=== PATIENT | female | born 1970 | race Caucasian/White ===

== ENCOUNTER 2019-07-27 10:27 | Outpatient (CLI) | payer OTHER, SELFPAY | END 2019-07-27 10:28 | disposition home or self-care (01) | LOC: ANHVADLAB 10:29 | PROVIDERS: PCP Internal Medicine; Visit Provider Nurse Practitioner | DX: E66.9 Obesity, unspecified (principal); Z68.30 Body mass index [BMI] 30.0-30.9, adult | CPT/HCPCS: 36415; 84443 ==

== ENCOUNTER 2019-12-14 08:09 | Outpatient (CLI) | payer OTHER, SELFPAY ==
--- NOTE | ~2019-12-14 | MM_ITS ---
EXAMINATION: MM scrn amberly implant BI w florentino HISTORY: Screening mammogram TECHNIQUE: Craniocaudal and mediolateral oblique 3-D tomosynthesis images with implant displacement a nd synthetic 2-D images were generated. Craniocaudal and mediolateral oblique views of the breasts wi thout implant displacement were obtained using full field digital mammography. CAD analysis was submi tted and interpreted. COMPARISON: 10/07/2017 bilateral implant digital screening mammogram 04/25/2016 right diagnostic digital implant mammogram and complete right breast ultrasound 04/17/2016 bilateral implant digital screening mammogram BREAST PARENCHYMAL COMPOSITION: There are scattered areas of fibroglandular density. FINDINGS: Status post bilateral augmentation mammoplasty. There is a biopsy marker on the left; history of benign left breast biopsy in 2010. There is no evide nce of suspicious mass, calcification, or architectural distortion to suggest malignancy in either br east. There has been no suspicious interval change. IMPRESSION: 1. No mammographic evidence of malignancy. 2. Recommend routine screening mammography in one year. BI-RADS Category 1: Negative Reviewed, dictated and finalized at location A.
== END 2019-12-14 08:10 | disposition home or self-care (01) ==
LOC: ANHIMG 08:14
PROVIDERS: PCP Internal Medicine; Visit Provider Obstetrics & Gynecology
DX: Z12.31 Encounter for screening mammogram for malignant neoplasm of breast (principal)
CPT/HCPCS: 77063; 77067

== ENCOUNTER → 2020-04-19 09:20 | Outpatient (CLI) | payer OTHER, SELFPAY ==
--- NOTE | ~2020-04-19 | XR_ITS ---
EXAMINATION: XR chest 2V DATE: 04/19/2020 10:26 INDICATION: COVID 19 TECHNIQUE: frontal and lateral views of the chest were obtained. COMPARISON: Chest radiograph dated 03/19/2018 FINDINGS: The lungs remain clear with no focal airspace opacities, pulmonary edema, pleural effusion or pneumot horax. The cardiomediastinal silhouette is normal. Mild thoracic spondylosis. IMPRESSION: 1. No acute cardiopulmonary disease. Reviewed, dictated and finalized at location B.
== END ==
PROVIDERS: PCP Internal Medicine; Visit Provider Internal Medicine
DX: R06.02 Shortness of breath (principal)
CPT/HCPCS: 71046

== ENCOUNTER 2020-12-09 11:07 | Emergency (ER) | payer OTHER, SELFPAY ==
--- NOTE | ~2020-12-09 | XR_ITS ---
EXAMINATION: XR chest 2V DATE: 12/09/2020 12:42 INDICATION: Hypertension, dizziness and blurry vision TECHNIQUE: PA and lateral views of the chest were obtained. COMPARISON: Chest radiograph dated 04/19/20 FINDINGS: The lungs remain clear with no focal airspace opacities, pulmonary edema, pleural effusion or pneumot horax. The cardiomediastinal silhouette is normal. Bilateral breast implants. Mild thoracic spondylos is. IMPRESSION: 1. No acute cardiopulmonary disease. Reviewed, dictated and finalized at location A.
--- NOTE | ~2020-12-09 | CT_ITS ---
EXAMINATION: CT brain wo con DATE: 12/09/2020 13:02 INDICATION: Headache. Dizziness. TECHNIQUE: Computed tomography (CT) of the head was performed without intravenous contrast. The mA wa s adjusted according to patient size. Iterative reconstruction technique was employed. The dose-lengt h product was 605.33 mGy-cm. COMPARISON: Head CT 10/09/2018 FINDINGS: There is no intracranial hemorrhage, acute infarction, or abnormal intracranial mass lesion . The ventricles are normal in size. The paranasal sinuses are clear. The orbits are normal. The mast oid air cells are normal. IMPRESSION: 1. Normal brain. Reviewed, dictated and finalized at location B. IMPRESSION: 1. Normal brain.
[2020-12-09 11:11] VITALS: BP 136/89; PULSE 92; RESP 16; TEMP 36.3; O2SAT 95
--- NOTE | 2020-12-09 12:14 | ECG_ITS ---
Measurements Intervals [place] Rate: 93 P: 50 MD: 144 QRS: 34 QRSD: 75 T: 82 QT: 362 QTc: 452 Interpretive Statements SINUS RHYTHM NONSPECIFIC T-WAVE ABNORMALITY- HIGH LATERAL LEADS BASELINE WANDER- I, III BORDERLINE ECG Electronically Signed On 12-09-2020 13:48:39 CDT by Marco Aponte D.O.
[2020-12-09 12:35] LABS: Basophils Percent Auto 0.4 % (0.2-1.2); Eosinophils Absolute Auto 0.2 K/mm3 (0-0.3); Eosinophils Percent Auto 2.2 % (0-4.4); Hematocrit 42.9 % (37.0-47.0); Hemoglobin 13.9 g/dL (12.0-15.0); Immature Granulocyte Absolute 0.05 K/mm3 (0.00-0.031); Immature Granulocyte Percent A 0.5 % (0-0.5); Lymphocytes Percent Auto 35.2 % (18.3-44.2); Mean Corpuscular HGB Conc 32.4 g/dl (32-36); Mean Corpuscular Hemoglobin 29.3 pg (26-34); Mean Corpuscular Volume 90.3 fl (80-100); Mean Platelet Volume 10.4 fl (7.4-10.4); Monocytes Absolute Auto 0.6 K/mm3 (0.1-0.6); Neutrophils Absolute Auto 6.3 K/mm3 (1.3-6.7); Neutrophils Percent Auto 56.7 % (45.5-73.1); Platelet Count Result 304 k/mm3 (150-375); Red Blood Count 4.75 M/mm3 (4.2-5.4); White Blood Count 11.1 K/mm3 (4.5-10.0)
[2020-12-09 12:45] LABS: INR 0.8; Prothrombin Time 11.8 Seconds (11.1-14.7)
[2020-12-09 12:46] LABS: Partial Thromboplastin Time 26.1 SECONDS (22.3-36.8)
[2020-12-09 12:53] LABS: Anion Gap 7 mmol/L (8-16); Blood Urea Nitrogen 12 mg/dL (7-17); Calcium 9.2 mg/dL (8.4-10.2); Carbon Dioxide 31 mmol/L (22-30); Chloride 100 mmol/L (98-107); Estimated CRCL calculation 119 ml/min; Estimated Glomerular Filt Rate > 60; Glucose 154 mg/dL (65-105); Potassium 3.8 mmol/L (3.4-5.0); Sodium 138 mmol/L (137-145)
--- NOTE | 2020-12-09 13:02 | PC.NURSE ---
Pt to CT scan via stretcher.
[2020-12-09] MEDS: ACETAMINOPHEN 500 MG TABLET 1000 MG PO (13:10)
--- NOTE | 2020-12-09 13:10 | ED.HA ---
HPI - Headache General Chief Complaint: Recheck/Abnormal Lab/Rx Stated Complaint: elevated bp, blurred vision Time Seen by Provider: 12/09/20 12:27 Source: patient Mode of arrival: ambulatory Limitations: no limitations History of Present Illness HPI Narrative: This is a 50 year old female that presents to the ER for headache yesterday. Reports she was at work and started to note an area of blurry vision in her left eye. Reports this lasted for about 10 minutes and then was followed by a headache. Associated with nausea and lightheadedness. This lasted for a couple of hours last night. Today she still has just a mild headache. Otherwise has no complaints. Reports her blood pressure was elevated today on her home cuff. Denies fever, current vision changes, vomiting, chest pain, shortness of breath, numbness or weakness. Related Data Allergies Allergy/AdvReac Type Severity Reaction Status Date / Time codeine Allergy Mild Swelling Verified 09/26/20 14:43 of the Eye hydrocodone Allergy Mild FACIAL Verified 09/26/20 14:43 SWELLING Review of Systems Review of Systems: Narrative: CONSTITUTIONAL: Denies fever EYES: Reports visual changes CARDIOVASCULAR: Denies chest pain, or edema. RESPIRATORY: Denies dyspnea. GASTROINTESTINAL: Reports nausea. Denies vomiting NEUROLOGIC: Reports headache. Denies numbness, or weakness. All systems reviewed & are unremarkable except as noted in HPI and below PMFSH Past Medical History Medical History (Updated 12/09/20 @ 14:17 by Luz Holloway PA-C) Dyslipidemia Type 2 diabetes mellitus without complication, without long-term current use of insulin Vertigo Surgical History Surgical History H/O abdominoplasty History of breast augmentation Family History Family History Father Family history of congestive heart failure Mother Family history of anemia Family history of celiac disease Grandparent Family history of lung cancer Family history of malignant neoplasm of breast Social History Social History Smoking status: Former smoker Alcohol intake: current Gender identity (if verbalized by the patient): Female Exam Narrative: Exam Narrative: GENERAL: Well-appearing, well-nourished, and in no acute distress. HEAD: Normocephalic, atraumatic. EYES: PERRLA and EOMI. ENT: Nares clear, no rhinorrhea or epistaxis. Mucous membranes moist. Oropharynx without tonsillar hypertrophy exudate or other lesions. Bilateral TMs pearly cooper non-bulging NECK: Supple. No adenopathy or masses. No carotid bruits or JVD CHEST: Clear to auscultation. No respiratory distress. No wheezes rales or rhonchi HEART: Regular rate and rhythm. No murmur heard. Normal peripheral pulses. EXTREMITIES: Normal range of motion. No edema. Strength equal in bilateral upper and lower extremities (5/5) SKIN: Warm, dry, no rash. NEURO: No focal deficits. Alert and oriented x3. Cranial nerves II through XII grossly intact. Normal [id number] PSYCH: Normal mood and affect Course Consultations Consultation #1: Spoke with iVgnesh, on-call for Dr. Soriano about patient and work-up who will follow up in clinic. Date: 12/09/20 Time: 14:16 Vital Signs Vital signs: Vital Signs Temperature 97.3 F L 12/09/20 11:11 Pulse Rate 92 12/09/20 11:11 Respiratory Rate 16 12/09/20 11:11 Blood Pressure 136/89 12/09/20 11:11 Pulse Oximetry 95 12/09/20 11:11 Temperature 97.3 F L 12/09/20 11:11 Pulse Rate 93 12/09/20 13:12 Respiratory Rate 18 12/09/20 13:12 Blood Pressure 137/90 12/09/20 13:12 Pulse Oximetry 98 12/09/20 13:12 MDM - Headache MDM Narrative Medical decision making narrative: Patient presents to the emergency department for what sounds like a migraine yesterday. Had visual disturbance, followed by headache associate
[2020-12-09 13:12] VITALS: BP 137/90; PULSE 93; RESP 18; O2SAT 98
--- NOTE | 2020-12-09 13:12 | PC.NURSE ---
Pt declined IV at this time. Labs sent.
[2020-12-09 14:42] VITALS: BP 129/78; PULSE 97; RESP 12; O2SAT 99
== END 2020-12-09 14:42 | disposition home or self-care (01) ==
PROVIDERS: Physician Assistant; Emergency Provider Emergency Medicine; PCP Internal Medicine
DX: G43.109 Migraine with aura, not intractable, without status migrainosus (principal); E78.5 Hyperlipidemia, unspecified; E11.9 Type 2 diabetes mellitus without complications; Z87.891 Personal history of nicotine dependence; R94.31 Abnormal electrocardiogram [ECG] [EKG]; Z79.84 Long term (current) use of oral hypoglycemic drugs
CPT/HCPCS: 36415; 70450; 71046; 80048; 85025; 85610; 85730; 93005; 99284; A9270

== ENCOUNTER 2021-12-11 10:29 | Outpatient (CLI) | payer OTHER, SELFPAY ==
--- NOTE | ~2021-12-11 | XR_ITS ---
XR chest 2V DATE: 12/11/2021 10:43 INDICATION: Acute upper respiratory infection TECHNIQUE: PA and lateral views COMPARISON: December 09, 2020 and lateral chest FINDINGS: Normal heart size. No hilar or mediastinal enlargement. No pulmonary infiltrate or consolid ation, pleural effusion or pulmonary vascular congestion or pneumothorax. IMPRESSION: No active cardiopulmonary disease Reviewed, dictated and finalized at location A.
== END 2021-12-11 10:30 | disposition home or self-care (01) ==
LOC: ANHIMG 10:32
PROVIDERS: PCP Internal Medicine; Visit Provider Internal Medicine
DX: J06.9 Acute upper respiratory infection, unspecified (principal)
CPT/HCPCS: 71046

== ENCOUNTER 2022-03-14 10:46 | Outpatient (CLI) | payer OTHER, SELFPAY ==
--- NOTE | ~2022-03-14 | CT_ITS ---
EXAMINATION: CTA brain carotid DATE: 03/14/2022 12:22 CDT INDICATION: Stroke like symptoms. TECHNIQUE: Computed tomographic angiography (CTA) of the head was performed without and with 100 mL O mnipaque-350 intravenous contrast. CTA of the neck was performed with intravenous contrast. The dose- length product was 1624.86 mGy-cm. Maximum intensity projection and volume rendered 3D-reconstruction s were created by the technologist on a separate workstation. Automated exposure control and iterativ e reconstruction technique were employed. COMPARISON: 10/2020. FINDINGS: HEAD CTA: Brain parenchymal volume is normal. No acute intracranial hemorrhage, infarction, mass or m ass effect. Normal cooper-white differentiation. Paranasal sinuses and mastoids are pneumatized. No dep ressed skull fractures. The anterior, middle and posterior cerebral arteries are symmetric without si gnificant stenosis, occlusion or aneurysm. There are dominant vertebral arteries. Basilar artery is u nremarkable. The right anterior cerebral artery originates from left-sided circulation via the anteri or communicating artery. NECK CTA: Visualized aspects of the mediastinum are unremarkable. No lymphadenopathy. Thyroid gland i s unremarkable. The common and internal carotid arteries are within normal limits without significant stenosis, atherosclerosis, occlusion or dissection. The lung apices are unremarkable. No significant bone or joint abnormality. There is 0% stenosis of the proximal right internal carotid artery relative to normal distal artery l umen diameter (NASCET criteria). There is 0% stenosis of the proximal left internal carotid artery re lative to normal distal artery lumen diameter. IMPRESSION: 1: No significant vascular abnormality of the head or neck. No evidence for significant stenosis, occ lusion, dissection or aneurysm. 2: No acute intracranial abnormality. Reviewed, dictated and finalized at location A. IMPRESSION: 1: No significant vascular abnormality of the head or neck. No evidence for sig nificant stenosis, occlusion, dissection or aneurysm. 2: No acute intracranial abnormality.
[2022-03-14 11:21] LABS: Estimated Glomerular Filt Rate > 60
== END 2022-03-14 10:47 | disposition home or self-care (01) ==
PROVIDERS: PCP Nurse Practitioner; Visit Provider Nurse Practitioner
DX: H54.7 Unspecified visual loss (principal); R29.90 Unspecified symptoms and signs involving the nervous system
CPT/HCPCS: 70496; 70498; Q9967

== ENCOUNTER → 2022-03-14 13:19 | Outpatient (CLI) | payer OTHER, SELFPAY ==
--- NOTE | ~2022-03-14 | US_ITS ---
US abdomen limited INDICATION: Right upper quadrant pain PROCEDURE: Realtime right upper abdominal ultrasound. COMPARISON: No prior studies for comparison. FINDINGS: The pancreas is normal without focal mass or pancreatic ductal dilation. Liver echotexture is increased, consistent with fatty infiltration. There is normal directional flow in the portal ve in. The gallbladder is normal without stones, gallbladder wall thickening or pericholecystic fluid. Comm on bile duct measures 3 mm. No sonographic Yanes's sign. IMPRESSION: 1: Hepatic steatosis. Reviewed, dictated and finalized at location A. IMPRESSION: 1: Hepatic steatosis.
== END ==
PROVIDERS: PCP Nurse Practitioner; Visit Provider Nurse Practitioner
DX: R10.11 Right upper quadrant pain (principal); K76.0 Fatty (change of) liver, not elsewhere classified
CPT/HCPCS: 76705

== ENCOUNTER 2022-04-09 07:51 | Outpatient (CLI) | payer OTHER, SELFPAY ==
--- NOTE | ~2022-04-09 | MR_ITS ---
EXAMINATION: MR brain/brain stem wo con DATE: 04/09/2022 08:25 INDICATION: Transient ischemic attack. TECHNIQUE: Magnetic resonance imaging (MRI) of the brain and brainstem was performed without intraven ous contrast. COMPARISON: Head CT 03/14/2022 FINDINGS: There is no intracranial hemorrhage, acute infarction, or abnormal intracranial mass lesion . The ventricles are normal in size. The paranasal sinuses are clear. The orbits are normal. The mast oid air cells are normal. IMPRESSION: 1. Normal brain. Reviewed, dictated and finalized at location A. IMPRESSION: 1. Normal brain.
== END 2022-04-09 07:52 | disposition home or self-care (01) ==
PROVIDERS: PCP Internal Medicine; Visit Provider Student in an Organized Health Care Education/Training Program
DX: G45.9 Transient cerebral ischemic attack, unspecified (principal)
CPT/HCPCS: 70551

== ENCOUNTER 2022-04-10 10:32 | Outpatient (CLI) | payer OTHER, SELFPAY ==
--- NOTE | 2022-04-10 10:58 | ECHO_ITS ---
Patient Info Name: Judy Juan Age: 52 years : 1970 Gender: Female Ht: 65 in Wt: 195 lbs BSA: 2.05 m2 HR: 86 bpm BP: 136 / 82 mmHg Technical Quality: Poor Exam Date: 04/10/2022 11:25 AM Exam Location: [facility] Patient Status: Outpatient Admit Date: 04/10/2022 Staff Ordering Physician: Maite Arellano MD Technical Business Systems Analyst: Sneha Archer RDCS Attending Provider: Maite Arellano MD Referring Physician: Lynne Chen; Exam Type: CA echo doppler w bubble study Study Info Indications - stroke Complete two-dimensional, color flow and Doppler transthoracic echocardiogram is performed with agitated saline. Contrast/Agitated Saline Contrast/Ag. Saline: Agitated Saline Amount: 20.00 ml Administered By: Sneha Archer RDCS Existing IV Access: No Summary 1. Technically suboptimal study due to poor sonographic images. 2. Left ventricular chamber dimension is normal. 3. Left ventricular systolic function is normal, estimated at 65-70%. 4. The left ventricular diastolic function is grade I diastolic dysfunction. 5. E/e' 7 is not elevated. Left Ventricle E/e' 7 is not elevated. Technically suboptimal study due to poor sonographic images. Left ventricular chamber dimension is normal. Left ventricular systolic function is normal, estimated at 65-70%. The left ventricular diastolic function is grade I diastolic dysfunction. Right Ventricle Right ventricular chamber dimension is normal. Right ventricular systolic function is normal. Left Atria Left atrial chamber dimension is normal. Right Atria Right atrial chamber dimension is normal. Atrial Septum Agitated saline injection with and without valsalva maneuver opacified right side cardiac chambers without obvious shunt to left side cardiac chambers. Intact interatrial septum visualized by 2D and agitated saline imaging. Aortic Valve The aortic valve is trileaflet. There is no aortic valve stenosis. There is no aortic valve regurgitation. Pulmonic Valve There is no pulmonic regurgitation. Mitral Valve There is no mitral valve stenosis. There is no mitral valve regurgitation. Tricuspid Valve There is no tricuspid valve regurgitation. Pericardium/Pleural There is no pericardial effusion. Inferior Vena Cava Inferior vena cava is not well visualized. Aorta The aortic root size at the sinus of Valsalva is normal. Mitral Valve Name Value Normal MV Doppler MV Decel [place] 786 cm/s2 MV PHT 26 ms MV Area (PHT) 8.3 cm2 4.0-5.0 MV Diastolic Function MV E Peak Velocity 72 cm/s MV A Peak Velocity 81 cm/s MV E/A 0.9 MV Decel Time 91 ms MV Annular TDI MV Septal e' Velocity 9.0 cm/s >=8.0 MV E/e' (Septal) 8.0 <=8.0 MV Lateral e' V
--- NOTE | 2022-04-10 14:55 | P.NEURO_ITS ---
Neurology EEG Report General Information Date of Study: 04/10/22 TEST eeg DIAGNOSIS Unspecified convulsions CONDITION OF RECORDING awake drowsy and sleep EEG NUMBER [id number] CLINICAL HISTORY patient reports 3 episodes of becoming disoriented, notable to find correct words and also feeling like the right side of face and tongue is swollen EEG DESCRIPTION basic resting occipital frequency consists of low to medium voltage 8 to 10 hertz per 2nd alpha admixed with low-voltage 15 to 18 hertz per 2nd beta. Low- voltage beta activity seen diffusely during drowsiness admixed with waxing and waning posterior alpha rhythm. Bilateral symmetrical sleep activity seen during sleep with symmetrical spindles, hyperventilation not done. Photic stimulation produced normal drive. Nonparoxysmal, Nonfocal. Nonlateralizing. IMPRESSION Normal record
== END 2022-04-10 10:33 | disposition home or self-care (01) ==
PROVIDERS: PCP Internal Medicine; Referring Provider Nurse Practitioner; Visit Provider Student in an Organized Health Care Education/Training Program
DX: R56.9 Unspecified convulsions (principal)
CPT/HCPCS: 93306; 95816; 96375

== ENCOUNTER 2024-04-22 14:04 | Outpatient (CLI) | payer OTHER, SELFPAY ==
--- NOTE | ~2024-04-22 | MM_ITS ---
EXAMINATION: MM scrn amberly implant BI w florentino HISTORY: Screening mammogram TECHNIQUE: Craniocaudal and mediolateral oblique 3-D tomosynthesis images with implant displacement a nd synthetic 2-D images were generated. Craniocaudal and mediolateral oblique views of the breasts wi thout implant displacement were obtained using full field digital mammography. CAD analysis was submi tted and interpreted. COMPARISON: Comparison to multiple prior studies sequentially, with oldest reviewed study dated 04/17. BREAST PARENCHYMAL COMPOSITION: Not dense: There are scattered areas of fibroglandular density. FINDINGS: There is no evidence of suspicious mass, calcification, or architectural distortion to sugg est malignancy in either breast. There has been no suspicious interval change. IMPRESSION: 1. No mammographic evidence of malignancy. 2. Recommend routine screening mammography in one year. BI-RADS Category 1: Negative Reviewed, dictated and finalized at location B.
== END 2024-04-22 14:05 | disposition home or self-care (01) ==
LOC: ANHIMG 14:07
PROVIDERS: PCP Student in an Organized Health Care Education/Training Program; Visit Provider Obstetrics & Gynecology
DX: Z12.31 Encounter for screening mammogram for malignant neoplasm of breast (principal)
CPT/HCPCS: 77063; 77067